=== PATIENT | female | born 1990 | race American Indian/Alaskan Native ===

== ENCOUNTER 2017-01-28 13:55 | Emergency (ER) | payer MEDICAID ==
[2017-01-28 14:14] VITALS: BP 128/88
[2017-01-28] MEDS ORDERED: CLEOCIN IM ONE (17:11)
[2017-01-28] MEDS ORDERED: PERCOCET 5/325 PO ONE (17:12)
--- NOTE | 2017-01-28 17:16 | Emergency Department Report ---
Abscess Boil HPI - HPI Chief Complaint: Skin/Abscess/Foreign Body Stated Complaint: SWELLING/PAIN IN ABD Time Seen by Provider: 01/28/17 16:57 Duration: 3 Days Location: Other ([facility]) Severity: Mild History: Yes Pain, No Fever, No Purulent Drainage, No Numbness, No Foreign Body , No Previous History, No Insect Bite Home Medications: Previous Rx's Medication Instructions Recorded Last Taken Type Sulfamethoxazole/Trimethoprim 1 each PO BID #14 tablet 01/28/17 Unknown Rx [Bactrim DS TAB] traMADol [Ultram] 50 mg PO Q6HR PRN #12 tablet 01/28/17 Unknown Rx Allergies/Adverse Reactions: Allergies Allergy/AdvReac Type Severity Reaction Status Date / Time No Known Allergies Allergy Unverified 01/28/17 14:07 ED Review of Systems ROS: Stated complaint: SWELLING/PAIN IN ABD Other details as noted in HPI Comment: All other systems reviewed and negative Skin: other (ABSCESS [facility] FOLLICULITIS) ED Past Medical Hx - Past Medical History Previous Medical History?: No - Surgical History Past Surgical History?: Yes Additional Surgical History: C section x 04-15-19 - Social History Smoking Status: Never Smoker Substance Use Type: None - Medications Home Medications: Home Medications Medication Instructions Recorded Confirmed Last Taken Type Sulfamethoxazole/Trimethoprim 1 each PO BID #14 tablet 01/28/17 Unknown Rx [Bactrim DS TAB] traMADol [Ultram] 50 mg PO Q6HR PRN #12 tablet 01/28/17 Unknown Rx ED Abscess Boil Physical Exam - Exam General: Vital signs noted. No distress. Alert and acting appropriately. Exam: Yes Tenderness, Yes Surrounding Cellulites/Erythema, Yes Normal Neurologic Exam, Yes Normal Circulation, No Fluctuance, No Lymphangitis, No Crepitation, No Heart Murmur ED Course Vital Signs 01/28/17 14:07 Temperature 98.4 F Pulse Rate 100 H Respiratory 16 Rate Blood Pressure 128/88 O2 Sat by Pulse 99 Oximetry - Reevaluation(s) Reevaluation #1: 01/28/17 17:17 TO ER W L GROIN PAIN [facility] PAIN SP CSEC ON 11-24 NO FEVER. NO TACHY. NO HYPOTENSION NON ILL NON TOXIC APPEARING SHE STATES ITS BEEN THERE 3 DAYS NO FOCAL AREA. MORE FOLLICULITIS/ CELLULITIS MEDICATED DC HOME W DC FOR FOLLOW UP W ON TUESDAY Critical care attestation.: If time is entered above; I have spent that time in minutes in the direct care of this critically ill patient, excluding procedure time. ED Disposition Clinical Impression: Folliculitis, Cellulitis Disposition: DC-01 TO HOME OR SELFCARE Is pt being admited?: No Does the pt Need Aspirin: No Condition: Stable Instructions: Folliculitis (ED) Additional Instructions: MED ORDERED TODAY FOLLOW UP WITH SURGEON TUESDAY EPSOM SALT SOAKS THREE TIMES PER DAY FOR 20 MINUTES EACH TIME. Prescriptions: Sulfamethoxazole/Trimethoprim [Bactrim DS TAB] 1 each PO BID #14 tablet traMADol [Ultram] 50 mg PO Q6HR PRN #12 tablet PRN Reason: Pain Referrals: PRIMARY CARE, [Primary Care Provider] - 3-5 Days Time of Disposition: 17:14
== END 2017-01-28 17:43 | disposition home or self-care (01) ==
LOC: ED 13:55
DX: L03.311 Cellulitis of abdominal wall (principal); L73.8 Other specified follicular disorders
CPT/HCPCS: 96372